=== PATIENT | male | born 1990 | race Caucasian/White ===

== ENCOUNTER 2022-04-17 21:27 | Emergency (ER) | payer OTHER, SELFPAY ==
[2022-04-17 21:37] VITALS: BP 146/87; PULSE 83; RESP 16; TEMP 36.2; O2SAT 98; BMI 34.8
--- NOTE | 2022-04-17 21:59 | ED_ITS ---
HPI - Burn/Smoke Inhalation General Chief complaint: Burn/Smoke Inhalation Stated complaint: Work Inj, burned on L Foot 280 degree water Time Seen by Provider: 04/17/22 21:51 Source: patient Mode of arrival: ambulatory History of Present Illness HPI Narrative: 31-year-old male with no significant medical history presenting to the ED complaining of burn to left foot s/p hot water pouring on foot at work 1 hour [employer]. Reports pain. Denies injury to other area, numbness, tingling, fever MD Complaint: burn Onset (ago): hour(s) Related Data Previous Rx's Medication Instructions Recorded bacitracin 500 unit/gram topical 1 appl topical BID #30 grams 04/17/22 ointment Allergies Allergy/AdvReac Type Severity Reaction Status Date / Time shellfish derived Allergy Angioedema Verified 04/17/22 21:43 Review of Systems Review of Systems: Constitutional: No Fever, No Chills ENT/Mouth: No Ear Pain, No Nasal Congestion, No sore throat, No Rhinorrhea Cardiovascular: No Chest Pain, No SOB Respiratory: No Cough, No Sputum Gastrointestinal: No Nausea, No Vomiting, No Diarrhea, No Constipation, No Abdominal pain Genitourinary: No Dysuria, No Urinary Frequency, No Hematuria, No Flank Pain Musculoskeletal: No joint pain, No Myalgias, No Joint Swelling Skin: + Skin Lesions, No rash Neuro: No Weakness, No Numbness, No Paresthesias Yes all other systems are reviewed and are negative Constitutional: Constitutional: Reports as per HPI [facility] Past Medical History Attestation statement: The following information was validated with the patient. Social History Social History Advance Directives: No Advance Directives Information Provided: Yes Physical Exam Vital Signs: Vital Signs: Last Vital Signs Temp 98.3 F 04/17/22 22:08 Pulse 93 04/17/22 22:08 Resp 16 04/17/22 22:08 BP 137/96 H 04/17/22 22:08 Pulse Ox 94 04/17/22 22:08 O2 Del Method 04/17/22 22:08 BMI result Body Mass Index 34.8 Const: General: cooperative, healthy appearing and no acute distress Orientation/consciousness: patient oriented x3 Limitations: no limitations HEENT: Head: Yes normal to inspection and Yes atraumatic Ears: hearing grossly normal bilaterally General nose exam: Normal external nose present Face and sinus: Yes normal facial exam Eyes: General: appearance normal, both eyes and all related structures EOM: EOMs intact bilaterally Neck: Neck: Yes normal visual inspection and Yes no meningeal signs Resp: Effort & Inspection: normal respiratory effort and no respiratory distress Cardio: Rate: regular rate Heart sounds: S1 normal heart sound present and S2 normal heart sound present Peripheral pulses: posterior tibial pulses present Skin: Other: +small superficial burn noted to top of left foot greatest at 5th and 4th distal metatarsal region. No blistering, not warm, mildly tender to palpation, neurovascular intact. Not circumferential. Rashes: no rashes Neuro: General: patient oriented x3, tone normal and no meningeal signs Gait exam (Neuro): Normal gait present Extrem: General: Yes normal to inspection Medications Administered Discontinued Medications Generic Name Dose Route Start Last Admin Trade Name Freq PRN Reason Stop Dose Admin Bacitracin 1 appl 04/17/22 22:03 04/17/22 22:13 Bacitracin Oint 14 Gm Tube TOPICAL 04/17/22 22:04 1 appl ONCE ONE Administration Protocol MDM - Burn/Smoke Inhalation MDM Narrative Medical decision making narrative: 31-year-old male with no significant medical history presenting to the ED complaining of burn to left foot s/p hot water pouring on foot at work 1 hour [employer]. Reports pain. On exam vital signs stable, NAD, nontoxic appearing, physical exam as above with noted superficial burn. No evidence of infection, not circumferential. Topical bacitracin applied with nonstick dressing Medical Records Attestation: I reviewed the patient's medical records. Lab Data Attestation: I reviewed the patient's lab results. Discharge Plan Discharge Clinical Impression: Burn Patient Disposition: Home, Self-Care Instructions: Superficial Burn (ED) Additional Instructions: Please apply topical bacitracin to her burn Ice as needed Take Tylenol and Motrin if area begins look infected, is red or has drainage return to the emergency department Prescriptions: New bacitracin 500 unit/gram ointment 1 appl topical BID Qty: 30 0RF Referrals: [facility] [Outside] Stand Alone Forms: Work/School Release
[2022-04-17 22:08] VITALS: BP 137/96; PULSE 93; RESP 16; TEMP 36.8; O2SAT 94
[2022-04-17] MEDS: Bacitracin Oint 14 GM TUBE 1 APPL TOPICAL (22:13)
== END 2022-04-17 22:20 | disposition home or self-care (01) ==
PROVIDERS: Emergency Provider Emergency Medicine
DX: T25.222A Burn of second degree of left foot, initial encounter (principal); T31.0 Burns involving less than 10% of body surface; X11.8XXA Contact with other hot tap-water, initial encounter; Y93.9 Activity, unspecified; Y92.9 Unspecified place or not applicable; Y99.9 Unspecified external cause status
CPT/HCPCS: 99283